=== PATIENT | female | born 1950 | race African-American/Black ===

== ENCOUNTER 2017-03-17 06:44 | Emergency (ER) | payer OTHER ==
[~2017-03-17] VITALS: Ht 167.6 cm; Wt 136.0 kg
[~2017-03-17 06:44] MED LIST: EPINEPHRINE 0.1MG/ML (1:10,000) 10ML SYR ONE; SODIUM BICARBONATE 7.5% 0.9 MEQ/ML 50ML SYR IV ONE
[2017-03-17] MEDS ORDERED: EPINEPHRINE 0.1MG/ML (1:10,000) 10ML SYR ONE (06:57)
[2017-03-17] MEDS ORDERED: HYDR100T26 PO (07:00)
[2017-03-17] MEDS ORDERED: FURO-151 PO (07:00)
[2017-03-17] MEDS ORDERED: NIFE30TA83 PO (07:00)
[2017-03-17] MEDS ORDERED: LEVO150T8 PO (07:00)
[2017-03-17] MEDS ORDERED: ATOR80TA76 PO (07:00)
[2017-03-17] MEDS ORDERED: ATEN-42 PO (07:01)
[2017-03-17 07:02] VITALS: BP 0/0
== END 2017-03-17 06:53 | disposition expired ==
LOC: ER 06:44
DX: I46.9 Cardiac arrest, cause unspecified (principal); N18.6 End stage renal disease; I12.0 Hypertensive chronic kidney disease with stage 5 chronic kidney disease or end stage renal disease; E11.9 Type 2 diabetes mellitus without complications
CPT/HCPCS: 31500; 92950; 99285; J0171; J3490